=== PATIENT | male | born 1995 ===

== ENCOUNTER 2017-12-28 22:19 | Emergency (ER) | payer OTHER ==
[2017-12-28 22:26] VITALS: BP 146/79; PULSE 64; RESP 18; TEMP 98.9; O2SAT 100
--- NOTE | 2017-12-28 22:37 | ED PDOC ---
HPI: CCC, URI, Sore Throat Time Seen by Provider: 12/28/17 22:27 Chief Complaint (Nursing): ENT Problem Chief Complaint (Provider): Clogged ear sensation History Per: Patient Additional Complaint(s): 22 yo male, no PMH, presents to ED with complaint sof clogged ear sensation to right ear after using Qtip tonight Past Medical History Reviewed: Nursing Documentation, Vital Signs Vital Signs: Last Vital Signs Temp 98.9 F 12/28/17 22:22 Pulse 64 12/28/17 22:22 Resp 18 12/28/17 22:22 BP 146/79 12/28/17 22:22 Pulse Ox 100 12/28/17 22:22 - Medical History PMH: No Chronic Diseases Denies: Diabetes, Hepatitis, HIV, HTN, Seizures, Sexually Transmitted Disease - Surgical History Surgical History: No Surg Hx - Family History Family History: States: Unknown Family Hx - Living Arrangements Living Arrangements: With Family - Home Medications Home Medications: Ambulatory Orders Medication Instructions Recorded Bacitracin Ointment [Bacitracin] 1 applic TOP BID #1 tube 10/26/15 Carbamide Peroxide [Debrox] 15 ml OT TID #1 drops 12/28/17 - Allergies Allergies/Adverse Reactions: Allergies Allergy/AdvReac Type Severity Reaction Status Date / Time No Known Allergies Allergy Verified 12/28/17 22:26 Review of Systems ROS Statement: Except As Marked, All Systems Reviewed And Found Negative ENT: Positive for: Ear Pain Physical Exam - Reviewed Nursing Documentation Reviewed: Yes Vital Signs Reviewed: Yes - Physical Exam Appears: Positive for: Well, Non-toxic, No Acute Distress Head Exam: Positive for: ATRAUMATIC, NORMAL INSPECTION, NORMOCEPHALIC Skin: Positive for: Normal Color, Warm, DRY Eye Exam: Positive for: EOMI, Normal appearance, PERRL ENT: Positive for: TM Is/Are (Right Cerumen impaction, no FB) Neck: Positive for: Normal, Painless ROM Cardiovascular/Chest: Positive for: Regular Rate, Rhythm Respiratory: Positive for: CNT, Normal Breath Sounds Gastrointestinal/Abdominal: Positive for: Normal Exam, Soft Back: Positive for: Normal Inspection Extremity: Positive for: Normal ROM Neurologic/Psych: Positive for: Alert, Oriented - ECG O2 Sat by Pulse Oximetry: 100 Disposition - Clinical Impression Clinical Impression: Left ear pain, Cerumen impaction - Patient ED Disposition Is Patient to be Admitted: No - Disposition Disposition: Routine/Home Disposition Time: 22:37 Condition: STABLE Prescriptions: Carbamide Peroxide [Debrox] 15 ml OT TID #1 drops Instructions: Ear Wax Impaction (DC) Forms: [employer] (Vietnamese)
== END 2017-12-28 23:37 | disposition home or self-care (01) ==
LOC: H.ER 22:19
DX: H61.22 Impacted cerumen, left ear (principal)